=== PATIENT | male | born 1970 | race Caucasian/White ===

== ENCOUNTER 2025-02-11 08:35 | Observation (INO) | payer MEDICAID ==
[~2025-02-11] VITALS: Ht 185.4 cm; Wt 116.4 kg
[2025-02-11] MEDS ORDERED: Ipratropium/Albuterol SulF 2.5-0.5MG/3 ML Amp INH ONE (09:25)
[2025-02-11 09:51] LABS: BASOPHILS ABSOLUTE AUTO 0.07 K/mm3 (0.00-0.23); BASOPHILS PERCENT AUTO 1 % (0-2); EOSINOPHILS ABSOLUTE AUTO 0.30 K/mm3 (0.00-0.68); EOSINOPHILS PERCENT AUTO 3 % (0-6); Hematocrit 37.5 % (37.0-53.0); Hemoglobin 13.8 g/dL (13.5-17.5); IMMATURE GRAN ABSOLUTE AUTO 0.16 K/mm3 (0.00-0.10); IMMATURE GRAN PERCENT AUTO 2 % (0-1); LYMPHOCYTES ABSOLUTE AUTO 1.69 K/mm3 (0.84-5.20); LYMPHOCYTES PERCENT AUTO 17 % (21-46); MONOCYTES ABSOLUTE AUTO 0.87 K/mm3 (0.16-1.47); MONOCYTES PERCENT AUTO 9 % (4-13); Mean Corpuscular HGB Conc 36.8 g/dL (31.5-36.5); Mean Corpuscular Volume 84 fL (80-100); NEUTROPHILS ABSOLUTE AUTO 7.05 K/mm3 (1.96-9.15); NEUTROPHILS PERCENT AUTO 69 % (41-73); NRBC ABSOLUTE 0.00 K/mm3 (0.00-0.02); NRBC Auto 0.0 /100 WBC (0.0-0.2); Platelet Count 182 K/mm3 (150-400); RDW Coefficient Variation 13.7 % (11.7-14.2); RDW Standard Deviation 42.4 fL (35.1-46.3)
[2025-02-11 10:45] LABS: Influenza A, PCR NEGATIVE (NEGATIVE); Influenza B, PCR NEGATIVE (NEGATIVE); Resp Syncytial Virus, PCR NEGATIVE (NEGATIVE); SARS-Cov-2 (COVID-19) PCR, MMC NEGATIVE (NEGATIVE)
[2025-02-11] MEDS ORDERED: LevoFLOXacin 750 MG/D5W 150ML 150 ML IV ONE (11:25)
[2025-02-11 12:51] LABS: Albumin, Blood 2.7 g/dL (3.4-5.0); Albumin/Globulin Ratio 0.6 (0.8-1.8); Anion Gap 8.0 mmol/L (3-11); Bilirubin, Total 0.8 mg/dL (0.1-1.0); Blood Urea Nitrogen 13.0 mg/dL (8-24); CO2, Blood 25.0 mmol/L (21-32); Calcium, Blood 7.6 mg/dL (8.5-10.1); Chloride, Blood 100.0 mmol/L (98-108); Creatinine, Blood 0.68 mg/dL (0.60-1.20); Globulin, Blood 4.2 g/dL (2.2-4.0); Potassium, Blood 5.2 mmol/L (3.5-5.5); Sodium, Blood 128.0 mmol/L (136-145); Total Protein, Blood 6.9 g/dL (6.4-8.2)
[2025-02-11 12:52] LABS: Alanine Aminotransfer (ALT/SGP 85.0 U/L (12-78); Aspartate Aminotrans (AST/SGOT 82.0 U/L (12-37)
[2025-02-11 12:53] LABS: Glucose, Blood 213.0 mg/dL (70-99)
[2025-02-11] MEDS ORDERED: Albuterol 2.5 MG/3 ML VIAL INH SCH (14:15)
[2025-02-11] MEDS ORDERED: Ipratropium/Albuterol SulF 2.5-0.5MG/3 ML Amp INH PRN (14:20)
[2025-02-11] MEDS ORDERED: Budesonide 0.25 MG / 2 ML RESP INH SCH (14:20)
[2025-02-11] MEDS ORDERED: FLU VACC TS2025-26(6MOS UP)/PF 45 MCG/0.5 ML SYRINGE IM SCH (14:20)
[2025-02-11] MEDS ORDERED: GLIP10 PO (14:21)
[2025-02-11] MEDS ORDERED: Amlodipine Bes2.5 MG PO (14:21)
[2025-02-11] MEDS ORDERED: GABA300 PO (14:22)
[2025-02-11] MEDS ORDERED: FENO160 PO (14:22)
[2025-02-11] MEDS ORDERED: ELIQUIS5 M2 PO (14:22)
[2025-02-11] MEDS ORDERED: METF500 PO (14:22)
[2025-02-11] MEDS ORDERED: LISI5 PO (14:22)
[2025-02-11] MEDS ORDERED: Crestor40 MG PO (14:22)
[2025-02-11] MEDS ORDERED: COLESTID1 G1 PO (14:23)
[2025-02-11 16:12] VITALS: BP 154/94
[2025-02-11] MEDS ORDERED: Insulin Human Lispro 100 Units/ML 3ML Syringe SC SCH (16:30)
--- NOTE | 2025-02-11 19:22 | NUR ---
SHIFT SUMMARY PT A&OX4, PT ADMITTED DUE TO COPD EXAC. PT REPORTED HEADACHE, THIS RN GAVE TYLENOL, PT REPORTED NO HEADACHE POST TYLENOL ADMINISTRATION, PT REPORTS NO CHEST PAIN, PT REPORTS SOME SOB, PT HAS COUGH AND REPORTS CONGESTION, W "SOMETIMES MUCUS PRODUCTION." PT INDEPENDENT IN ROOM. PT ON ROOM AIR, PT SPO2 IS 92%. ADMISSION ASSESSMENT COMPLETED, MEDS RECONSILED. PT ACHS BLOOD SUGARS, INSULIN GIVEN PER CORRECTION SCALE. SECOND RN SKIN CHECK COMPLETED WITH STEFANIA DIGGS, VSS. PT ORIENTED TO UNIT/CALL LIGHT/FALL PRECAUTIONS. PT IN BED, BED LOCKED, IN LOWEST POSITION, CALL LIGHT IN REACH.
--- NOTE | 2025-02-11 19:42 | NUR ---
CALLED HOSPITALIST FOR MED REC. VERBAL ORDERS RECEIVED FOR GABAPENTIN 300 MG PO BEDTIME.
[2025-02-11 20:45] VITALS: BP 155/88
--- NOTE | 2025-02-11 23:19 | NUR ---
CALLED HOSPITALIST FOR CBG OF 366. RECEIVED ORDERS TO START HOME LANTUS HOME DOSE OF 23 UNITS QHS AND CONTINUE WITH ORDERED HUMALOG 4 UNITS ORDERED.
[2025-02-11] MEDS ORDERED: Insulin Glargine-Yfgn 100 Unit/mL 3 ML SYR SC SCH (23:25)
[2025-02-11] MEDS ORDERED: Insulin Glargine 100 Unit/ML 3 ML SYR SC SCH (23:27)
[2025-02-12 04:53] VITALS: BP 140/89
[2025-02-12 05:42] LABS: pH Blood Venous 7.46 (7.34-7.37)
[2025-02-12 05:45] LABS: BASOPHILS ABSOLUTE AUTO 0.03 K/mm3 (0.00-0.23); BASOPHILS PERCENT AUTO 0 % (0-2); EOSINOPHILS ABSOLUTE AUTO 0.00 K/mm3 (0.00-0.68); EOSINOPHILS PERCENT AUTO 0 % (0-6); Hematocrit 39.4 % (37.0-53.0); Hemoglobin 13.9 g/dL (13.5-17.5); IMMATURE GRAN ABSOLUTE AUTO 0.31 K/mm3 (0.00-0.10); IMMATURE GRAN PERCENT AUTO 2 % (0-1); LYMPHOCYTES ABSOLUTE AUTO 0.76 K/mm3 (0.84-5.20); LYMPHOCYTES PERCENT AUTO 6 % (21-46); MONOCYTES ABSOLUTE AUTO 0.36 K/mm3 (0.16-1.47); MONOCYTES PERCENT AUTO 3 % (4-13); Mean Corpuscular HGB Conc 35.3 g/dL (31.5-36.5); Mean Corpuscular Volume 84 fL (80-100); NEUTROPHILS ABSOLUTE AUTO 11.53 K/mm3 (1.96-9.15); NEUTROPHILS PERCENT AUTO 89 % (41-73); NRBC ABSOLUTE 0.00 K/mm3 (0.00-0.02); NRBC Auto 0.0 /100 WBC (0.0-0.2); Platelet Count 197 K/mm3 (150-400); RDW Coefficient Variation 13.6 % (11.7-14.2); RDW Standard Deviation 41.8 fL (35.1-46.3)
[2025-02-12 06:13] LABS: Anion Gap 13.0 mmol/L (3-11); Blood Urea Nitrogen 26.0 mg/dL (8-24); CO2, Blood 19.0 mmol/L (21-32); Calcium, Blood 8.6 mg/dL (8.5-10.1); Chloride, Blood 101.0 mmol/L (98-108); Creatinine, Blood 0.64 mg/dL (0.60-1.20); Glucose, Blood 357.0 mg/dL (70-99); Potassium, Blood 4.3 mmol/L (3.5-5.5); Sodium, Blood 129.0 mmol/L (136-145)
--- NOTE | 2025-02-12 06:32 | NUR ---
SHIFT SUMMARY A&OX4. ABLE TO MAKE NEEDS KNOWN. INDEPENDENT IN ROOM. TELE IN PLACE AND PT HAS REMAINED NS. REMAINED ON RA AND O2 SATS HAVE REMAINED IN MID 90-100 O2 SAT. BLOOD SUGARS WERE ELEVATED AND PT RESTARTED ON HOME LANTUS AT 23 UNITS HS AND SLIDING SCALE HUMALOG. HOSPITALIST CALLED AND CONFIRMED PRIOR TO ADMINISTRATION. PT WAS ABLE TO REST COMFORTABLY THROUGHOUT THE SHIFT AND IS CURRENTLY SITTING UP IN HIS BED AT LOWEST POSITION WITH CALL LIGHT WITHIN REACH.
[2025-02-12 06:54] VITALS: BP 162/98
[2025-02-12 10:32] VITALS: BP 137/88
[2025-02-12] MEDS ORDERED: Insulin Human Lispro 100 Units/ML 3ML Syringe SC SCH (11:30)
[2025-02-12] MEDS ORDERED: SYMBICORT 80-10.2 GM INH (13:56)
[2025-02-12] MEDS ORDERED: HUMALOG JU100 UNIT/2 SC (13:58)
[2025-02-12] MEDS ORDERED: LEVFLO500 PO (13:58)
[2025-02-12] MEDS ORDERED: PRED20 PO (13:59)
[2025-02-12] MEDS ORDERED: IPRAT-ALBUT 0.5-3 ML INH (13:59)
--- NOTE | 2025-02-12 15:12 | NUR ---
DISCHARGE NOTE PT A&OX4. PT ADMITTED DUE TO COPD EXAC. PT REPORTS NO CHEST PAIN, NO GENERALIZED PAIN. PT REPORTS SOB AT BASELINE. PT INDEPENDENT IN ROOM. RESPIRATORY CARE INVOLVED. PT SPO2 91% ON ROOM AIR. PT VSS. PT HAD BLOOD SUGAR OF 413 AT LUNCH. BREAK RN REPORTED "CALLED DR. ALONSO TO REPORT. GAVIN REPORTED GIVE THE 15 PER SCALE, WILL PUT PT ON INSULIN PEN FOR DISCHARGE DIRECTED." ORDERED DISCHARGE. PT MEDS FAXED TO [facility] PER PT REQUEST. MEDS FAXED TO [facility] DUE TO PT REPORTED "INSURANCE PROBABLY NOT COVERED AT [facility]." THIS RN COMPLETED DISCHARGE AND WENT OVER DISCHARGE AND MEDS. CASE MANAGEMENT REPORTED NEBULIZER WILL GET DELIVERED TO PT. PT ESCORTED TO PT ENTERANCE VIA WHEELCHAIR BY NOLAN.
[2025-02-12] MEDS ORDERED: Insulin Glargine 100 Unit/ML 3 ML SYR SC SCH (21:00)
== END 2025-02-12 14:42 | disposition home or self-care (01) ==
LOC: ER 08:35 → MEDS 08:37 → ER 14:18 → MEDS 14:18 → ER 02-12 08:35 → MEDS 02-12 08:36
PROVIDERS: Physician Assistant; ADMIT Internal Medicine
DX: J44.1 Chronic obstructive pulmonary disease with (acute) exacerbation (principal); J96.01 Acute respiratory failure with hypoxia; E87.1 Hypo-osmolality and hyponatremia; E11.9 Type 2 diabetes mellitus without complications; Z88.5 Allergy status to narcotic agent; Z88.1 Allergy status to other antibiotic agents; Z87.891 Personal history of nicotine dependence
CPT/HCPCS: 36415; 71046; 80048; 80053; 82803; 82947; 83690; 83880; 85025; 87637; 94640; 94664; 94760; 96365; 96375; 99285-25; A9270; G0378; J1815; J1956; J2919